=== PATIENT | male | born 2000 | race Caucasian/White ===

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

== ENCOUNTER 2022-11-11 01:37 | Emergency (ER) | payer OTHER, SELFPAY ==
--- NOTE | ~2022-11-11 | XR_ITS ---
XR foot LT min 3V DATE: 11/11/2022 02:36 INDICATION: Kicked bedpost. Mid foot pain, small laceration TECHNIQUE: 3 views of left foot COMPARISON: None FINDINGS: No fracture or dislocation, periosteal reaction or bone destruction, radiopaque soft tissue foreign body or subcutaneous emphysema is evident. IMPRESSION: Negative Reviewed, dictated and finalized at location A. IMPRESSION: Negative
[2022-11-11 01:41] VITALS: BP 139/93; PULSE 115; RESP 16; TEMP 36.4; O2SAT 98
[2022-11-11 01:55] VITALS: BP 152/108; PULSE 109; RESP 15; TEMP 36.6; O2SAT 98
--- NOTE | 2022-11-11 01:59 | ED.GENADULT ---
[facility] - General Adult General Chief complaint: Extremity Injury, Lower Stated complaint: left foot laceration Time Seen by Provider: 11/11/22 01:56 Source: patient Mode of arrival: ambulatory Limitations: no limitations History of Present Illness [facility] narrative: This is a 22-year-old male who presents to the ED with chief complaint of a left foot injury that occurred just prior to arrival. Patient states that he was walking through the bedroom and accidentally kicked the corner of the metal bedpost. He reports a lot of bleeding at the time with a dorsal foot wound. Reports pain in the midfoot area but was able to ambulate. Denies any further site of pain or injury. States he is due for his tetanus update. Related Data Home Medications Medication Instructions Recorded Confirmed No Home Medications 10/27/20 10/27/20 Allergies Allergy/AdvReac Type Severity Reaction Status Date / Time codeine Allergy Unknown Unknown Verified 10/27/20 11:21 Sulfa (Sulfonamide Allergy Unknown Unknown Verified 10/27/20 11:21 Antibiotics) Review of Systems Review of Systems: All systems as dictated in [facility] Past Medical History Medical History (Updated 11/11/22 @ 02:35 by Karlos Jones PA-C) History of meniscal tear No active medical problems Surgical History Surgical History (Updated 10/27/20 @ 11:14 by Fransisca Ortiz PA-C) History of tonsillectomy Exam Narrative: GENERAL: Well-appearing, well-nourished, and in no acute distress. HEAD: Normocephalic, atraumatic. EYES: PERRLA and EOMI. ENT: Nares clear, no rhinorrhea or epistaxis. Mucous membranes moist. Oropharynx without tonsillar hypertrophy exudate or other lesions. NECK: Supple. No adenopathy or masses. CHEST: No respiratory distress. Clear to auscultation. No wheezes rales or rhonchi HEART: Regular rate and rhythm. No murmur heard. Normal peripheral pulses. ABDOMEN: Soft, nontender, nondistended, normal active bowel sounds. MSK: LLE: Tenderness to the midfoot dorsally. No bruising. No crepitus or deformity. RLE: Benign SKIN: 1.5 cm laceration to the dorsum of the left foot. No active bleeding. NEURO: Alert and oriented x3. No focal deficits. PSYCH: Normal mood and affect. Course Vital Signs Vital signs: Vital Signs Temperature 97.6 F 11/11/22 01:41 Pulse Rate 115 H 11/11/22 01:41 Respiratory Rate 16 11/11/22 01:41 Blood Pressure 139/93 H 11/11/22 01:41 Pulse Oximetry 98 11/11/22 01:41 Oxygen Delivery Room Air 11/11/22 01:41 Temperature 98 F 11/11/22 01:55 Pulse Rate 109 H 11/11/22 01:55 Respiratory Rate 15 11/11/22 01:55 Blood Pressure 152/108 H 11/11/22 01:55 Pulse Oximetry 98 11/11/22 01:55 Oxygen Delivery Room Air 11/11/22 01:41 Procedures Laceration Laceration 1: Date: 11/11/22 Time: 02:33 Site: lower extremity (foot) Side (If applicable): left Size (cm): 1.5 Description: linear Depth: simple, single layer Local Anesthetic: none Pre-repair: wound explored and irrigated extensively ====== Skin Level ====== Skin layer closed with: steri strips ====== Subcutaneous Layer ====== ====== Muscle Layer ====== ====== Tendon Layer ====== Dressing: Closed with good approximation with 2 Steri-Strips. Medical Decision Making MDM Narrative Medical decision making narrative: This is a 22-year-old male who presents to the ED with chief complaint of laceration to the dorsum of the left foot after kicking a bedpost today. Vitals are stable. Exam does reveal a 1.5 cm laceration left foot. There is tenderness in the area. X-rays do not reveal any overt fractures or foreign bodies. He is ambulatory. The laceration was well irrigated and closed with 2 Steri-Strips with good approximation. Tetanus updated. Pt will be discharged in stable condition. Return precautions given and supportive m
[2022-11-11] MEDS: TETANUS,DIPHTHERIA,AC PERTUSSIS ADULT (0.5 ML) BOOSTRIX IM (02:04)
[2022-11-11 02:39] VITALS: BP 134/99; PULSE 102; RESP 15; TEMP 37; O2SAT 97
== END 2022-11-11 02:40 | disposition home or self-care (01) ==
PROVIDERS: Emergency Provider Physician Assistant
DX: S91.312A Laceration without foreign body, left foot, initial encounter (principal); Z23 Encounter for immunization; W22.03XA Walked into furniture, initial encounter; Y92.003 Bedroom of unspecified non-institutional (private) residence as the place of occurrence of the external cause
CPT/HCPCS: 73630; 90471; 90715; 99283